=== PATIENT | female | born 1995 | race Caucasian/White ===

== ENCOUNTER 2024-05-27 21:01 | Observation (INO) | payer MEDICAID ==
[~2024-05-27] VITALS: Ht 175.3 cm; Wt 122.5 kg
[2024-05-27 22:12] VITALS: BP 113/57; PULSE 73; RESP 18; TEMP 98.4
== END 2024-05-28 00:35 | disposition home or self-care (01) ==
LOC: MLD 21:01
PROVIDERS: ADMIT Obstetrics & Gynecology; ATTEND Obstetrics & Gynecology
DX: Z34.83 Encounter for supervision of other normal pregnancy, third trimester (principal); Z3A.33 33 weeks gestation of pregnancy
CPT/HCPCS: 36415; 86886; 86900; 86901; G0378; G0379; J2790; 96372